=== PATIENT | male | born 1980 | race Caucasian/White ===

== ENCOUNTER 2018-12-10 12:56 | Emergency (ER) | payer BC ==
[~2018-12-10] VITALS: Ht 180.3 cm; Wt 102.1 kg
[2018-12-10] MEDS ORDERED: HYDROCODONE/APAP 10MG-325MG TAB PO ONE (13:15)
[2018-12-10] MEDS ORDERED: LIDOCAINE 5% PATCH TP SCH (13:15)
[2018-12-10] MEDS ORDERED: ROBAXIN-750750 MG PO (13:32)
[2018-12-10] MEDS ORDERED: MOTRIN200 MG PO (13:32)
[2018-12-10 13:50] VITALS: BP 136/85
== END 2018-12-10 13:50 | disposition home or self-care (01) ==
LOC: ER 12:56
DX: S83.512A Sprain of anterior cruciate ligament of left knee, initial encounter (principal); V43.02XA Car driver injured in collision with other type car in nontraffic accident, initial encounter; Y92.488 Other paved roadways as the place of occurrence of the external cause
CPT/HCPCS: 99283